=== PATIENT | female | born 1980 | race Hispanic/Latino ===

== ENCOUNTER → 2021-03-06 10:08 | Outpatient (CLI) | payer SELFPAY ==
[2021-03-06 18:54] LABS: Add Manual Diff / Slide Review NO; Basophils Absolute Auto 0 /uL (0-100); Basophils Percent Auto 0.7 % (0-2); Eosinophils Absolute Auto 0 /uL (0-450); Eosinophils Percent Auto 0.7 % (2-4); Hematocrit 39.9 % (36-46); Hemoglobin 13.4 g/dL (12.0-16.0); Lymphocytes Absolute Auto 1800 /uL (1100-4500); Lymphocytes Percent Auto 34.5 % (25-40); Mean Corpuscular HGB Conc 33.5 % (30-36); Mean Corpuscular Hemoglobin 30.8 PG (26-34); Mean Corpuscular Volume 92.1 fL (80-100); Monocytes Absolute Auto 300 /uL (0-900); Neutrophils Absolute Auto 3000 /uL (1500-7000); Neutrophils Percent Auto 59.1 % (50-75); Platelet Count 270 X10^3/uL (150-400); Red Blood Cell Count 4.34 X10^6/uL (4.0-5.2); Red Cell Distribution Width 13.4 % (11.6-14.8); White Blood Cell Count 5.2 X10^3/uL (4.5-11.0)
[2021-03-06 19:04] LABS: Alanine Aminotransferase 13 IU/L (<35); Albumin 4.4 g/dL (3.5-5.0); Albumin Globulin Ratio 1.2 (1.0-2.8); Alkaline Phosphatase 73 U/L (38-126); Aspartate Aminotransferase 25 IU/L (14-36); BUN Creatinine Ratio 18.2 (6-22); Bilirubin Total 0.5 mg/dL (0.2-1.3); Blood Urea Nitrogen 10 mg/dL (7-17); Calcium 9.7 mg/dL (8.4-10.2); Carbon Dioxide 28 mmol/L (22-32); Chloride 104 mmol/L (98-107); Estimated Glomerular Filt Rate > 60.0 mL/min (>60); Globulin 3.7 g/dL (1.7-4.1); Glucose 83 mg/dL (70-100); HEMOLYSIS < 15 (0-50); Lipase 139 U/L (23-300); Potassium 3.7 mmol/L (3.4-5.1); Sodium 141 mmol/L (137-145); Total Protein 8.1 g/dL (6.3-8.2)
[2021-03-07 16:13] LABS: Interpretation Negative (Negative)
== END ==
PROVIDERS: PCP Physician Assistant; Visit Provider Physician Assistant
DX: R30.0 Dysuria (principal); R10.9 Unspecified abdominal pain
CPT/HCPCS: 80053; 83013; 83690; 85025; 87086

== ENCOUNTER → 2021-03-09 08:00 | Outpatient (CLI) | payer SELFPAY | PROVIDERS: PCP Physician Assistant; Visit Provider Physician Assistant | DX: R10.31 Right lower quadrant pain (principal) | CPT/HCPCS: 87086 ==

== ENCOUNTER → 2021-03-24 13:34 | Outpatient (CLI) | payer SELFPAY ==
--- NOTE | 2021-03-24 13:43 | DI.US.S_ITS ---
PROCEDURE: US ABDOMEN COMPLETE INDICATIONS: PAIN TECHNIQUE: Real-time scanning was performed of the abdominal and retroperitoneal organs, with image documentation. COMPARISON: None. FINDINGS: Liver: Liver measures 10.4 cm and demonstrates steatosis. Gallbladder: Absent. Biliary ducts: Intrahepatic bile ducts are non-dilated. Extrahepatic bile duct caliber measures 6.4 mm. Normal is 6-7 mm or less in diameter, or 10 mm or less post-cholecystectomy. Pancreas: Visualized portions of the pancreas are sonographically normal. Spleen: Spleen is normal in size and homogeneous in echotexture. Kidneys: Kidneys are normal in size and echotexture. Right kidney measures 9.9 cm long; left kidney measures 10.1 cm long. No hydronephrosis or nephrolithiasis. No solid masses. Aorta: Visualized aorta is normal in caliber at less than 3 cm. Iliacs: Proximal common iliac arteries are normal in caliber at less than 2.5 cm. IVC: Intrahepatic inferior vena cava is patent. Miscellaneous: No free abdominal fluid. IMPRESSION: Unremarkable exam. Dictated by: Lexie Metcalf M.D. on 03/24/2021 at 16:51 Approved by: Lexie Metcalf M.D. on 03/24/2021 at 16:52
== END ==
PROVIDERS: PCP Physician Assistant
DX: R10.84 Generalized abdominal pain (principal); Z87.42 Personal history of other diseases of the female genital tract
CPT/HCPCS: 76700

== ENCOUNTER → 2021-04-12 11:42 | Outpatient (CLI) | payer SELFPAY ==
--- NOTE | 2021-04-12 11:48 | DI.US.S_ITS ---
PROCEDURE: US PELVIC COMPLETE INDICATIONS: PAIN TECHNIQUE: Real-time scanning was performed of the pelvic organs, with image documentation. Additional endovaginal scanning was necessary due to incomplete visualization of the adnexal and endometrial structures by transabdominal scanning. COMPARISON: [facility], US, US ABDOMEN COMPLETE, 03/24/2021, 14:59. FINDINGS: Uterus: Uterus is anteverted and normal in size at 8.4 x 3.4 x 4.8 cm. The myometrium is heterogeneous, with a 1.9 cm intramural fibroid seen on the right posteriorly. The endometrium measures 3-4 mm combined thickness. Ovaries: The right ovary is not seen. The left ovary measures 1.9 x 1 x 1.8 cm and demonstrates no focal abnormality. No adnexal masses are seen on either side. Other: No pathologic free abdominal or pelvic fluid. IMPRESSION: 1.9 cm uterine fibroid seen on the right posteriorly. We strive to produce accurate, complete, and clear reports of imaging services. To assist us in improving patient care, this report was composed using standard report templates and voice recognition software. Therefore, it may contain abnormal punctuation, insertions and/or omissions. Occasional wrong-word or sound-alike substitutions may occur. Though we review the report and make efforts to correct it, we do recommend that the report be read carefully in proper context to recognize any text inaccuracies. Dictated by: Ej Vivas M.D. on 04/12/2021 at 12:32 Approved by: Ej Vivas M.D. on 04/12/2021 at 12:33
== END ==
PROVIDERS: PCP Physician Assistant; Referring Provider Physician Assistant; Visit Provider Physician Assistant
DX: D25.1 Intramural leiomyoma of uterus (principal); R10.84 Generalized abdominal pain; Z87.42 Personal history of other diseases of the female genital tract
CPT/HCPCS: 76830; 76856

== ENCOUNTER → 2021-08-23 14:18 | Outpatient (CLI) | payer SELFPAY ==
[2021-08-23 14:48] LABS: COVID19 -Nasal RAPID Negative (Negative)
== END ==
PROVIDERS: PCP Physician Assistant; Visit Provider Obstetrics & Gynecology
DX: Z01.812 Encounter for preprocedural laboratory examination (principal); Z20.822 Contact with and (suspected) exposure to COVID-19
CPT/HCPCS: 87635

== ENCOUNTER → 2021-09-13 12:39 | Outpatient (CLI) | payer SELFPAY ==
[2021-09-13 16:54] LABS: COVID19 -Nasal RAPID Negative (Negative)
== END ==
PROVIDERS: PCP Physician Assistant; Visit Provider Obstetrics & Gynecology
DX: Z20.822 Contact with and (suspected) exposure to COVID-19 (principal); Z01.812 Encounter for preprocedural laboratory examination
CPT/HCPCS: 87635

== ENCOUNTER 2021-09-14 06:28 | Day surgery (SDC) | payer SELFPAY ==
[2021-09-11 10:52] VITALS: BMI 29.9
[2021-09-14] VITALS (12 sets, daily range): BP systolic 96–117; BP diastolic 47–81; PULSE 66–91; RESP 16–19; TEMP 35.9–36.8; O2SAT 98–100; BMI 29.9
--- NOTE | 2021-09-14 | PATH_ITS ---
[facility] Accession Number: [id number] . 01 Material submitted: . uterus - UTERUS, BILATERAL FALLOPIAN TUBE . 02 Diagnosis: Uterus, Bilateral Fallopian Tubes, Laparoscopic Supracervical Hysterctomy and Bilateral Salpingectomy (Disrupted and Fragmented Uterus Weight 45 grams): Proliferative endometrium; negative for glandular hyperplasia, cytologic atypia, or malignancy. Myometrium with patchy involvement by adenomyosis. Uterine serosa with no significant histomorphologic abnormality. Fallopian tubes x2, complete cross-sections; negative for atypia or malignancy. [facility] 09/18/2021 1425 Local . 02 Electronically signed: . Geneva Guerrier MD, Pathologist NPI- [id number] . 01 Gross description: . Received in formalin and labeled with the patient's name, designated uterus, bilateral fallopian tubes, is a markedly disrupted and fragmented uterus with bilateral undesignated fallopian tubes. The uterus fragments aggregate to 45 grams, 7.5 x 6.5 x 2.5 cm. The serosa is gary and disrupted with minimal scattered adhesions. There is scant endometrium identified, up to 0.1 cm thick. The myometrium is pink-gray and mildly trabeculated, up to 2.5 cm thick in the largest intact fragment. No discrete nodules or other lesions are identified. The first fallopian tube is fragmented, approximating to 5.5 cm in length by 0.6 cm in diameter with a gary ragged outer surface and attached open fimbriae. The second fallopian tube is 5 cm long by 0.6 cm in diameter with a purple-marroquin outer surface and attached open fimbriae. No additional lesions are identified. College Service Officer sections are submitted as follows: . A1-A2: College Service Officer endomyometrium. A3: College Service Officer first fallopian tube with entire fimbriae. A4: College Service Officer second fallopian tube with entire fimbriae. (LACY:[id number]) /MRV 09/15/2021 1500 Local . 02 Pathologist provided ICD-10: D25.1 . 02 CPT . 025391 Specimen Comment: A courtesy copy of this report has been sent to [phone] Performed at: 01 [facility] [address] [address], [place], [place] [id number] MD Maninder Rivas MD Phone: [phone] Performed at: 02 [facility] [address] [place], [place] [id number] MD Marilee Oliva MD Phone: [phone]
[2021-09-14] MEDS: LACTATED RINGERS 1,000 ML 42 ML IV (07:37)
[2021-09-14] MEDS: ACETAMINOPHEN 325 MG TABLET 975 MG PO (07:40)
--- NOTE | 2021-09-14 07:57 | PM.PREOP ---
Pre-operative Note COVID-19 COVID-19 status: Negative Result date/Date tested (Pos, Neg/Pending): 09/13/21 Criteria for continued procedure: Non-surgical alternatives not available or appropriate per current SOC Interval Note History & Physical reviewed/Exam performed by Physician: Yes Changes to H&P: No H&P completed within 30 days and has changed as indicated here:: 08/16/21
--- NOTE | 2021-09-14 08:00 | SUR.PREOP ---
Pre-admit done using hospital approved conference interpreter and assistance of staff.
[2021-09-14] MEDS: CEFAZOLIN 2 GM/20 ML SYRINGE IV (08:22)
--- NOTE | 2021-09-14 08:55 | SUR.OPER ---
Lithotomy on padded OR bed. Dunn Pad Positioner under torso. Head on pillow, arms padded and tucked at sides. Legs secured in padded yellow fins stirrups. Positioning help with Dr. Gutiérrez.
[2021-09-14] MEDS: BUPIVACAINE 0.5% (PF) 30 ML, EPINEPHrine 0.15 MG INJ (09:11)
--- NOTE | 2021-09-14 09:12 | SUR.OPER ---
Addendum entered by Neida Peters R.N. 09/14/21 09:19: Over the phone kaiawhina kura kaupapa maori called at 0740 in pre-op. Original Note: Over the phone kaiawhina kura kaupapa maori (Regis) called in pre-op per hospital policy to verify correct patient, correct surgery, any patient allergies, NPO status, and to verify consent for surgery and general anesthesia. Patient verified surgery as removal of uterus and bilateral tubes, but leaving cervix and both ovaries.
[2021-09-14] MEDS: ROPIVACAINE 0.2% PF 2 MG/ML 10ML AMP 20 ML INJ (09:30)
--- NOTE | 2021-09-14 10:11 | PM.GYNOP.1 ---
Operative Date/Time/Diagnoses Date of procedure: 09/14/21 Time of procedure: 10:11 Pre-op diagnosis: Menorrhagia Dysmenorrhea Post-op diagnosis: same Procedure & Clinicians Procedure: Procedures Operation Date: 09/14/21 07:45 Actual Procedure Side Surgeon p Laparoscopic Supracervical Hysterectomy with bilateral salpingectomy; lysis of adhesions Catie Muller MD Surgeon: Catie Muller Emergency Vehicle Operations Instructor: Kalyani Gutiérrez Anesthesia Type: General and Local Operative Notes Findings: 10 week size anteverted uterus Normal tubes Normal left ovary Right ovary with simple cyst Omental to abdominal wall adhesions Normal appendix Closure Type: primary Specimen(s): left tube, right tube and uterus Applied: catheter (Removed at end of the case) Estimated blood loss (mL): 20 Blood products transfused: none Procedure in detail: The patient was taken to the operating room where she was placed in the dorsal supine position. After adequate general endotracheal anesthesia was achieved, she was placed in the dorsal lithotomy position, and prepped and draped in the usual sterile fashion. A timeout was performed. A bivalve speculum was placed into the vagina and the anterior lip of the cervix grasped with a single-tooth tenaculum. An attempt was made to dilate the cervix to place the Zumi uterine manipulator but was unable. The single-tooth tenaculum was removed from the anterior lip of the cervix, and the bivalve speculum was removed from the vagina. A moistened sponge stick was placed into the vagina. Attention was then turned to the abdomen where 6 mL of half percent Marcaine with epinephrine were injected in the umbilical fold. A 5 mm incision was made. The Verees needle was placed into the peritoneal cavity, and its placement confirmed by aspiration and drop test. The Verees needle was removed. A 5 mm trocar was placed without difficulty. 2 other incisions were made 4 cm lateral to the umbilicus after 5 mL of half percent Marcaine with epinephrine were injected. These were 5 mm incisions. Two 5 mm trochars were placed under direct visualization. There were omental to anterior abdominal wall adhesions which were taken down with the power seal. Hemostasis was achieved. The right tube was grasped with an atraumatic grasper. Using the Powerseal the mesosalpinx was cauterized and cut all the way down to the cornua of the uterus. The cornua of the uterus was then grasped with an atraumatic grasper. The utero-ovarian ligaments were cauterized and cut. The round ligament and broad ligament was cauterized and cut with the Powerseal. Hemostasis was achieved. The bladder flap was created using the Powerseal with cautery and cut snf across. The uterine arteries on the right side were extensively cauterized with plasma kinetic. All of this was repeated on the left side. The remainder of the bladder flap was created using the plasma kinetic, and the bladder taken down off the lower uterine segment and cervix. Using the Endoloop, the cervix was amputated from the uterus 2 cm above the uterosacral ligaments. There was a small amount of bleeding noted from the posterior edge of the cervix, and this was cauterized for hemostasis. The endocervical canal was cauterized with the spatula. 6 mL of half percent Marcaine with epinephrine were injected above the pubic symphysis. A 12 mm trocar was placed. An Endobag was placed through the suprapubic trocar and the uterus and tubes were placed into the Endobag. The trocar was removed and the edges of the endobag were brought up through the skin. The Ezequiel was placed into the endobag. The uterus was hand morcellated in approximately 3 pieces. The Endobag was removed from the peritoneal cavity with the Ezequiel. The pelvis was copiously irrigated with warm normal saline. 20 cc of 0.2% ropivacaine were placed over the pelvic pedicles. No bleeding was noted. The instruments were removed from the abdomen. The CO2 was allowed to escape. The suprapubic incision was closed on the fascia with 0 Vicryl. Three simple interrupted sutures with 3-0 Vicryl were placed in the subcutaneous layer in the suprapubic incision. All of the incisions were closed with 4-0 Biosyn in a subcuticular fashion. The moistened sponge stick was removed from the vagina. Sponge, lap, and instrument counts were correct x-2. The patient tolerated the procedure well, was taken to PACU in stable condition. Complications: none Post-operative Condition: stable Disposition: PACU Plan for aftercare: To Acute Care after recovery
[2021-09-14] MEDS: KETOROLAC 30 MG/ML VIAL IV ×3 (10:56→22:21)
[2021-09-14] MEDS: LACTATED RINGERS 1,000 ML 100 ML IV (10:57)
--- NOTE | 2021-09-14 11:05 | PC.ADMIT ---
[email or web address] Admission Note: Pt arrived via bed from PACU, [place] speaking only, was able to orient to room and call light system, connected to monitoring equipment, able to make needs known, denies pain, only complaint is that she is cold. Bed low and locked, call light within reach, will continue to treat and monitor as ordered. The patient,Deb Nails,41 y/o, was given written information regarding hospital policies, unit procedures and contact persons. Patient's smoking status: Former smoker. Vital Signs - 8 hr 09/14/21 07:31 09/14/21 09:55 09/14/21 10:00 Temperature 97.8 F 98.2 F Pulse Rate 80 91 H 89 Respiratory Rate 16 16 16 Blood Pressure 116/81 104/47 L 96/66 Pulse Oximetry 98 100 100 09/14/21 10:05 09/14/21 10:10 09/14/21 10:18 Temperature 98.2 F Pulse Rate 82 73 66 Respiratory Rate 16 16 18 Blood Pressure 98/61 106/59 L 110/66 Pulse Oximetry 100 100 98 09/14/21 10:26 Temperature 97.0 F L Pulse Rate 80 Respiratory Rate 16 Blood Pressure 107/69 Pulse Oximetry 99
[2021-09-14] MEDS: IBUPROFEN 600 MG TABLET PO ×2 (12:32→20:02)
[2021-09-14] MEDS: ACETAMINOPHEN 325 MG TABLET 650 MG PO ×2 (12:32→20:02)
[2021-09-14] MEDS: SODIUM CHLORIDE 0.9% FLUSH 10 ML IV (22:22)
[2021-09-14] MEDS: DOCUSATE 100 MG CAPSULE 200 MG PO (22:22)
[2021-09-15 00:31] VITALS: BP 99/58; PULSE 72; RESP 19; TEMP 36.7; O2SAT 100
[2021-09-15 03:45] VITALS: BP 97/61; PULSE 72; RESP 18; TEMP 36.6; O2SAT 99
[2021-09-15] MEDS: ACETAMINOPHEN 325 MG TABLET 650 MG PO (04:39)
[2021-09-15] MEDS: KETOROLAC 30 MG/ML VIAL IV (04:40)
[2021-09-15] MEDS: SODIUM CHLORIDE 0.9% FLUSH 10 ML IV (04:40)
[2021-09-15 05:10] LABS: Add Manual Diff / Slide Review NO; Basophils Absolute Auto 0 /uL (0-100); Basophils Percent Auto 0.2 % (0-2); Eosinophils Absolute Auto 0 /uL (0-450); Eosinophils Percent Auto 0.1 % (2-4); Hemoglobin 12.3 g/dL (12.0-16.0); Lymphocytes Absolute Auto 1800 /uL (1100-4500); Lymphocytes Percent Auto 17.3 % (25-40); Mean Corpuscular HGB Conc 33.3 % (30-36); Mean Corpuscular Hemoglobin 30.8 PG (26-34); Mean Corpuscular Volume 92.5 fL (80-100); Monocytes Absolute Auto 600 /uL (0-900); Monocytes Percent Auto 5.7 % (3-14); Neutrophils Absolute Auto 8000 /uL (1500-7000); Neutrophils Percent Auto 76.7 % (50-75); Platelet Count 299 X10^3/uL (150-400); Red Blood Cell Count 4.01 X10^6/uL (4.0-5.2); Red Cell Distribution Width 14.1 % (11.6-14.8); White Blood Cell Count 10.5 X10^3/uL (4.5-11.0)
[2021-09-15 06:42] VITALS: BP 99/66; PULSE 74; RESP 18; TEMP 36.6; O2SAT 99
--- NOTE | 2021-09-15 09:20 | CM.DANOTE ---
Patient is a 41 yo female who was admitted on 09/14/21 for [facility] Salpingectomy. Pt has no insurance and her PCP is Radha Anton. EMR was reviewed. Per Surgeon, pt tolerated procedure well and medically stable to d/c home today. Per RN, pt is [place] Speaking and agreeable with d/c to home and hopeful to catch an early ferry home back to [facility] on a morning ferry and anxious to get discharged in time. No concerns at this time. Per admit counselors, pt is Self Pay but qualifies for [employer] Application and pt has been given the information and meet criteria for 100% financial assist. No bedside assessment at this time due to triage needs and pt discharge this morning and no needs identified. Plan: Patient to d/c home back to [facility] this morning via POV. No SW needs at this time, please refer if indicated. REANNA Cerda Discharge Planning/Care Management Pre-Anesthesia Assessment Start: 08/22/21 15:13 Freq: Status: Complete Protocol: Document 09/11/21 10:52 CAB (Rec: 08/22/21 15:18 [facility] [id number]) Pre-Anesthesia Assessment Patient Information Reviewed Via Chart Review Comment COVID screen @ 09/13/21 Primary Care Provider Radha Anton Seen Specialist in Last 12 Months Yes Specialist Seen Crawler Crane Operator Primary Language Chief Of Hospital Medicine Required Yes Height 149.86 cm Weight 67.132 kg Body Mass Index (BMI) 29.9 Anesthesia Review Requested No Hospitality Manager No Smoking Status Former smoker History of Falling (Recent or History of No ) Patient is completely paralyzed or No completely immobile Is patient on oxygen? No Hx Sleep Apnea No Currently Taking a Beta Chepe No Anti-Coagulant Therapy No Has a Cartographic Aide No Cardiac Testing No Hx Pacemaker/ICD No Pacemaker Rep Required? No Urinary Catheter Present No Hx Urinary Self Catheterization No Patient No Lactating No Marital Status Unknown Patient Discharge Plan Description Return Home Comment Lives on [facility]
--- NOTE | 2021-09-15 10:07 | PC.NURSE ---
AM Shift Pt is A/o x4, Trinidadian speaking only, denies pain, does express some concern with constipation. Colace given. Pt is dc home on [address] to [place]. at bedside. Reviewed all DC paperwork, in Trinidadian and allowed for questions. Follow up appt made with Renzo on October 11. No pain medication for DC, OTC ok. IV removed and Pt in WC to private vehicle.
== END 2021-09-15 10:11 | disposition home or self-care (01) ==
LOC: OR 06:33 → ICU 09-15 09:14
PROVIDERS: PCP Physician Assistant; Referring Provider Obstetrics & Gynecology; Visit Provider Obstetrics & Gynecology
PROC: 0UT94ZL Resection of Uterus, Supracervical, Percutaneous Endoscopic Approach (ICD-10-PCS; CPT 58542; principal; 2021-09-14 07:45)
DX: N92.0 Excessive and frequent menstruation with regular cycle (principal); K66.0 Peritoneal adhesions (postprocedural) (postinfection); N83.291 Other ovarian cyst, right side; D25.1 Intramural leiomyoma of uterus
CPT/HCPCS: 58542; 36415; 81025; 85025; J0171; J0330; J0690; J1100; J1885; J2250; J2405; J2704; J2795; J3010

== ENCOUNTER → 2021-09-25 14:05 | Outpatient (CLI) | payer SELFPAY ==
[2021-09-14 10:28] VITALS: BMI 29.9
== END ==
PROVIDERS: PCP Physician Assistant; Visit Provider Family Medicine
DX: R10.9 Unspecified abdominal pain (principal)
CPT/HCPCS: 87086

== ENCOUNTER → 2021-12-08 11:58 | Outpatient (CLI) | payer SELFPAY ==
[2021-09-14 10:28] VITALS: BMI 29.9
[2021-12-13 15:08] LABS: Candida species Negative (Negative); Gardnerella vaginalis Negative (Negative); Trichomoas vaginalis Negative (Negative)
== END ==
PROVIDERS: PCP Physician Assistant; Referring Provider Physician Assistant; Visit Provider Physician Assistant
DX: N89.8 Other specified noninflammatory disorders of vagina (principal)
CPT/HCPCS: 87480; 87510; 87660

== ENCOUNTER → 2022-03-21 11:54 | Outpatient (CLI) | payer SELFPAY ==
[2021-09-14 10:28] VITALS: BMI 29.9
[2022-03-24 06:10] LABS: Candida species Negative (Negative); Gardnerella vaginalis Positive (Negative); Trichomoas vaginalis Negative (Negative)
== END ==
PROVIDERS: PCP Physician Assistant; Referring Provider Physician Assistant; Visit Provider Physician Assistant
DX: N89.8 Other specified noninflammatory disorders of vagina (principal)
CPT/HCPCS: 87480; 87510; 87660

== ENCOUNTER → 2023-10-02 07:23 | Outpatient (CLI) | payer SELFPAY ==
[2021-09-14 10:28] VITALS: BMI 29.9
== END ==
PROVIDERS: PCP Physician Assistant; Visit Provider Physician Assistant Medical
DX: R31.9 Hematuria, unspecified (principal); N39.0 Urinary tract infection, site not specified
CPT/HCPCS: 87086

== ENCOUNTER → 2023-10-16 15:52 | Outpatient (CLI) | payer SELFPAY ==
[2021-09-14 10:28] VITALS: BMI 29.9
== END ==
PROVIDERS: PCP Physician Assistant Medical; Visit Provider Physician Assistant Medical
DX: R30.0 Dysuria (principal); R31.9 Hematuria, unspecified; R10.9 Unspecified abdominal pain
CPT/HCPCS: 87086

== ENCOUNTER → 2023-10-17 10:00 | Outpatient (CLI) | payer SELFPAY ==
[2021-09-14 10:28] VITALS: BMI 29.9
[2023-10-17 19:14] LABS: Add Manual Diff / Slide Review NO; Basophils Absolute Auto 0 /uL (0-100); Basophils Percent Auto 0.8 % (0-2); Eosinophils Absolute Auto 100 /uL (0-450); Eosinophils Percent Auto 1.2 % (2-4); Hematocrit 38.7 % (36-46); Hemoglobin 13.1 g/dL (12.0-16.0); Lymphocytes Absolute Auto 1700 /uL (1100-4500); Lymphocytes Percent Auto 37.3 % (25-40); Mean Corpuscular HGB Conc 33.8 % (30-36); Mean Corpuscular Hemoglobin 31.4 PG (26-34); Mean Corpuscular Volume 93.1 fL (80-100); Monocytes Absolute Auto 200 /uL (0-900); Monocytes Percent Auto 5.1 % (3-14); Neutrophils Absolute Auto 2500 /uL (1500-7000); Neutrophils Percent Auto 55.6 % (50-75); Platelet Count 237 X10^3/uL (150-400); Red Blood Cell Count 4.16 X10^6/uL (4.0-5.2); Red Cell Distribution Width 13.7 % (11.6-14.8); White Blood Cell Count 4.5 X10^3/uL (4.5-11.0)
[2023-10-17 21:37] LABS: Urine N gonorrhoeae NOT DETECTED
[2023-10-17 21:38] LABS: Urine Chlamydia NOT DETECTED
[2023-10-17 22:07] LABS: Alanine Aminotransferase 15 IU/L (<35); Albumin 4.6 g/dL (3.5-5.0); Albumin Globulin Ratio 1.3 (1.0-2.8); Alkaline Phosphatase 92 U/L (38-126); Amylase 59 U/L (30-110); Aspartate Aminotransferase 25 IU/L (14-36); Bilirubin Total 0.5 mg/dL (0.2-1.3); Blood Urea Nitrogen 11 mg/dL (7-17); Calcium 9.8 mg/dL (8.4-10.2); Carbon Dioxide 28 mmol/L (22-32); Chloride 104 mmol/L (98-107); Estimated Glomerular Filt Rate > 60 mL/min (>60); Globulin 3.5 g/dL (1.7-4.1); Glucose 91 mg/dL (70-100); HEMOLYSIS < 15 (0-50); Lipase 164 U/L (23-300); Potassium 4.4 mmol/L (3.4-5.1); Sodium 139 mmol/L (137-145); Total Protein 8.1 g/dL (6.3-8.2)
== END ==
PROVIDERS: PCP Physician Assistant Medical; Visit Provider Physician Assistant Medical
DX: M62.838 Other muscle spasm (principal); R07.81 Pleurodynia; R10.9 Unspecified abdominal pain; K76.0 Fatty (change of) liver, not elsewhere classified; R30.0 Dysuria; R31.9 Hematuria, unspecified
CPT/HCPCS: 80053; 82150; 83690; 85025; 87491; 87591

== ENCOUNTER → 2023-10-23 16:09 | Outpatient (CLI) | payer SELFPAY ==
[2021-09-14 10:28] VITALS: BMI 29.9
== END ==
PROVIDERS: PCP Physician Assistant Medical; Visit Provider Physician Assistant Medical
DX: R31.9 Hematuria, unspecified (principal)
CPT/HCPCS: 87086

== ENCOUNTER → 2023-10-30 10:54 | Outpatient (CLI) | payer SELFPAY ==
[2021-09-14 10:28] VITALS: BMI 29.9
--- NOTE | 2023-10-30 11:05 | DI.US.S_ITS ---
PROCEDURE: US RENAL COMPLETE INDICATIONS: PERSISTENT HEMATURIA TECHNIQUE: Real-time scanning was performed of the kidneys and bladder, with image documentation. COMPARISON: None. FINDINGS: Kidneys: Kidneys are normal in size. Right kidney measures 9.7 cm long; left kidney measures 11.1 cm long. Right renal cortical thickness is 1.4 cm; left renal cortical thickness is 1.6 cm. Renal cortical echotexture is normal. No hydronephrosis or nephrolithiasis. No suspicious solid mass lesions. Bladder: Pre-void bladder volume is 363 mL. Post-void residual is 31 mL. Pre-void images demonstrate no intraluminal masses or stones. On pre-void images, left ureteral jets are noted with color Doppler interrogation. (Of note, ureteral jets may not be detectable in up to 25% of cases due to insufficient differences in specific gravity between ureteral and bladder urine). Miscellaneous: No free pelvic fluid. IMPRESSION: Unremarkable ultrasound of the kidneys Approved by: Regis Colin M.D. on 10/30/2023 at 18:56
== END ==
PROVIDERS: PCP Physician Assistant Medical; Referring Provider Physician Assistant Medical; Visit Provider Physician Assistant Medical
DX: R31.9 Hematuria, unspecified (principal)
CPT/HCPCS: 76770

== ENCOUNTER → 2023-11-11 10:21 | Outpatient (CLI) | payer SELFPAY ==
[2021-09-14 10:28] VITALS: BMI 29.9
== END ==
PROVIDERS: PCP Physician Assistant Medical; Visit Provider Physician Assistant
DX: R07.0 Pain in throat (principal)
CPT/HCPCS: 87070

== ENCOUNTER → 2023-11-13 11:00 | Outpatient (CLI) | payer SELFPAY ==
[2021-09-14 10:28] VITALS: BMI 29.9
[2023-11-13 21:01] LABS: Add Manual Diff / Slide Review NO; Basophils Absolute Auto 100 /uL (0-100); Basophils Percent Auto 1.1 % (0-2); Eosinophils Absolute Auto 0 /uL (0-450); Eosinophils Percent Auto 0.5 % (2-4); Hematocrit 39.6 % (36-46); Hemoglobin 13.2 g/dL (12.0-16.0); Lymphocytes Absolute Auto 1900 /uL (1100-4500); Lymphocytes Percent Auto 35.5 % (25-40); Mean Corpuscular HGB Conc 33.3 % (30-36); Mean Corpuscular Hemoglobin 31.2 PG (26-34); Mean Corpuscular Volume 93.6 fL (80-100); Monocytes Absolute Auto 200 /uL (0-900); Monocytes Percent Auto 4.3 % (3-14); Neutrophils Absolute Auto 3100 /uL (1500-7000); Neutrophils Percent Auto 58.6 % (50-75); Platelet Count 281 X10^3/uL (150-400); Red Blood Cell Count 4.23 X10^6/uL (4.0-5.2); Red Cell Distribution Width 13.9 % (11.6-14.8); White Blood Cell Count 5.3 X10^3/uL (4.5-11.0)
[2023-11-13 21:15] LABS: Alanine Aminotransferase 13 IU/L (<35); Albumin 4.7 g/dL (3.5-5.0); Albumin Globulin Ratio 1.3 (1.0-2.8); Aspartate Aminotransferase 24 IU/L (14-36); Calcium 9.7 mg/dL (8.4-10.2); Carbon Dioxide 26 mmol/L (22-32); Chloride 108 mmol/L (98-107); Globulin 3.7 g/dL (1.7-4.1); Glucose 91 mg/dL (70-100); HEMOLYSIS < 15 (0-50); Sodium 141 mmol/L (137-145); Total Protein 8.4 g/dL (6.3-8.2)
[2023-11-13 21:30] LABS: Alkaline Phosphatase 101 U/L (38-126); BUN Creatinine Ratio 16.1 (6-22); Bilirubin Total 0.5 mg/dL (0.2-1.3); Blood Urea Nitrogen 10 mg/dL (7-17); Estimated Glomerular Filt Rate > 60 mL/min (>60)
[2023-11-13 21:42] LABS: TSH w/ Reflex to FT4 1.77 uIU/mL (0.47-4.68)
== END ==
PROVIDERS: PCP Physician Assistant Medical; Visit Provider Physician Assistant
DX: R31.9 Hematuria, unspecified (principal); R09.A2 Foreign body sensation, throat; R07.0 Pain in throat; K76.0 Fatty (change of) liver, not elsewhere classified
CPT/HCPCS: 80053; 84443; 85025

== ENCOUNTER → 2024-03-11 15:20 | Outpatient (CLI) | payer BC, SELFPAY ==
[2021-09-14 10:28] VITALS: BMI 29.9
== END ==
PROVIDERS: PCP Physician Assistant Medical; Visit Provider Nurse Practitioner Adult Health
DX: Z12.4 Encounter for screening for malignant neoplasm of cervix (principal); Z01.419 Encounter for gynecological examination (general) (routine) without abnormal findings; Z78.0 Asymptomatic menopausal state
CPT/HCPCS: 87798; 87801

== ENCOUNTER 2024-04-08 18:11 | Emergency (ER) | payer SELFPAY ==
[2021-09-14 10:28] VITALS: BMI 29.9
[2024-04-08 18:17] VITALS: BP 137/80; PULSE 87; RESP 18; TEMP 36.9; O2SAT 100; BMI 28.0
--- NOTE | 2024-04-08 18:28 | DI.RAD.S_ITS ---
PROCEDURE: XR CHEST 1V INDICATIONS: dyspnea, L arm pain TECHNIQUE: One view of the chest was acquired. COMPARISON: None. FINDINGS: Surgical changes and devices: None. Lungs and pleura: Lungs are clear. No pleural effusions or pneumothorax. Mediastinum: Mediastinal contours appear normal. Heart size is normal. Bones and chest wall: No suspicious bony lesions. Overlying soft tissues appear unremarkable. IMPRESSION: No acute pulmonary process. Dictated by: Lexie Metcalf M.D. on 04/08/2024 at 19:18 Approved by: Lexie Metcalf M.D. on 04/08/2024 at 19:18
--- NOTE | 2024-04-08 18:38 | ED_ITS ---
HPI - Headache General Chief Complaint: Headache Stated Complaint: SOB, left arm px, headache x2 days Time Seen by Provider: 04/08/24 18:25 Mode of arrival: Ambulatory History of Present Illness HPI Narrative: 44-year-old female with no reported past medical history presents for evaluation of headache and left arm pain. History obtained with help of physician general internal medicine services patient was [place]ib[place]ian-speaking only. She reports 1 day of generalized headache and aching pain in her left elbow that is atraumatic. She states that she checked her blood pressure at home and found that it was elevated. She initially went to the walk-in clinic, but due to her complaints she was referred to the ER for evaluation. She denies history of other medical problems, denies history of heart disease. Denies family history of heart disease Related Data Previous Rx's Medication Instructions Recorded fluconazole 100 mg tablet 100 mg PO .q 3 d #3 tabs 10/16/23 (Diflucan) baclofen 10 mg tablet 10 mg PO QID PRN muscle spasm #90 10/23/23 tabs fluticasone propionate 50 1 spray intranasal Q12H #16 grams 11/20/23 mcg/actuation nasal spray,suspension (Flonase Allergy Relief) estradiol 0.01% (0.1 mg/gram) 1 appful vaginal 3XW #42.5 grams 03/11/24 vaginal cream (Estrace) Allergies Allergy/AdvReac Type Severity Reaction Status Date / Time No Known Drug Allergies Allergy Verified 04/08/24 18:23 Patient History Medical History Menopausal and postmenopausal disorder Cervical cancer screening Screening for HPV (human papillomavirus) Well woman exam with routine gynecological exam Vaginal discharge Postop check Urinary tract infection Fibroid uterus Menorrhagia Acid reflux Uterine fibroid Surgical History History of 2 sections Hx of cholecystectomy Social History household members: significant other Smoking Status: Never smoker alcohol intake: current Smoking Status: Never smoker alcohol intake frequency: holidays/special occasions only Exam Initial Vital Signs Initial Vital Signs: Vital Signs Temperature 98.4 F 04/08/24 18:17 Pulse Rate 87 04/08/24 18:17 Respiratory Rate 18 04/08/24 18:17 Blood Pressure 137/80 04/08/24 18:17 Pulse Oximetry 100 04/08/24 18:17 Oxygen Delivery Method Room Air 04/08/24 18:17 Const: Awake, alert, no acute distress, nontoxic appearing Cardiac: regular rate, regular rhythm RESP: unlabored, clear bilaterally, no wheezing Skin: Warm, Dry, intact, no rashes Neuro: AO x3, CN II-XII grossly intact, moves all extremities Course Orders Ordered: Discontinued Medications Ketorolac Tromethamine (Ketorolac 30 Mg/Ml Vial) 15 mg IV NOW ONE Stop: 04/08/24 18:38 Last Admin: 04/08/24 18:56 Dose: 15 mg Documented By: HUANG Vital Signs Vital signs: Vital Signs - 8 hr 04/08/24 18:17 04/08/24 20:30 Temperature 98.4 F Pulse Rate 87 82 Respiratory Rate 18 14 Blood Pressure 137/80 131/77 Pulse Oximetry 100 98 Oxygen Delivery Method Room Air Room Air MDM - Headache Lab Data 04/08/24 18:43 04/08/24 18:43 Labs: Lab Results 04/08/24 Range/Units 18:43 WBC 6.3 (4.5-11.0) X10^3/uL RBC 4.20 (4.0-5.2) X10^6/uL Hgb 13.1 (12.0-16.0) g/dL Hct 39.1 (36-46) % MCV 93.0 (80-100) fL MCH 31.2 (26-34) PG MCHC 33.6 (30-36) % RDW 13.9 (11.6-14.8) % Plt Count 271 (150-400) X10^3/uL Neut % (Auto) 63.9 (50-75) % Lymph % (Auto) 30.2 (25-40) % Hyde % (Auto) 4.4 (3-14) % Eos % (Auto) 0.6 L (2-4) % Baso % (Auto) 0.9 (0-2) % Neut # (Auto) 4000 (0557-2323) /uL Lymph # (Auto) 1900 (0908-9359) /uL Hyde # (Auto) 300 (0-900) /uL Eos # (Auto) 0 (0-450) /uL Baso # (Auto) 100 (0-100) /uL Sodium 139 (137-145) mmol/L Potassium 3.6 (3.4-5.1) mmol/L Chloride 106 (98-107) mmol/L Carbon Dioxide 25 (22-32) mmol/L BUN 13 (7-17) mg/dL Creatinine 0.74 (0.52-1.04) mg/dL Estimated GFR > 60 (>60) mL/min BUN/Creatinine Ratio 17.6 (6-22) Glucose 102 H (70-100) mg/dL Calcium 9.5 (8.4-10.2) mg/dL Total Bilirubin 0.4 (0.2-1.3) mg/dL AST 27 (14-36) IU/L ALT 16 (<35) IU/L Alkaline Phosphatase 90 (38-126) U/L Total Creatine Kinase 72 (30-135) U/L Troponin I < 0.012 (0.01-0.034) ng/mL Total Protein 8.4 H (6.3-8.2) g/dL Albumin 4.7 (3.5-5.0) g/dL Globulin 3.7 (1.7-4.1) g/dL Albumin/Globulin Ratio 1.3 (1.0-2.8) Point of Care Testing Test Results Negative Urine Dip Bedside Urine Glucose Negative Bedside Urine Bilirubin - Negative Bedside Urine Ketone - Negative Urine Specific [place] 1.005 Bedside Urine Occult Blood - Negative Bedside Urine pH 6.0 Bedside Urine Protein - Negative Bedside Urine Urobilinogen +/- 1mg Bedside Urine Nitrite - Negative Bedside Urine Leukocytes - Negative Esterase Imaging Data Chest x-ray: Radiologist's Impression: PROCEDURE: XR CHEST 1V INDICATIONS: dyspnea, L arm pain TECHNIQUE: One view of the chest was acquired. COMPARISON: None. FINDINGS: Surgical changes and devices: None. Lungs and pleura: Lungs are clear. No pleural effusions or pneumothorax. Mediastinum: Mediastinal contours appear normal. Heart size is normal. Bones and chest wall: No suspicious bony lesions. Overlying soft tissues appear unremarkable. IMPRESSION: No acute pulmonary process. Dictated by: Lexie Metcalf M.D. on 04/08/2024 at 19:18 Approved by: Lexie Metcalf M.D. on 04/08/2024 at 19:18 MDM Narrative Medical decision making narrative: Well appearing patient with above complaint. states HTN at home but relatively normal BP in ED. No chest pain, just L elbow pain. No red flag signs of headache. Patient given toradol for headache wtih improvement in symptoms. Labs and chest x-ray unremarkable. Patient relieved to hear normal blood results. She was advised to take Tylenol and ibuprofen as needed for headache and advised to drink plenty of fluids. PCP follow up advised. Discharge Plan Departure Patient Disposition: Home Clinical Impression: Headache, Elevated blood pressure reading Instructions: DI for Headache Activity Restrictions/Additional Instructions: Arin Tylenol y ibuprofena por dolor. Arin paula agqu. Sigue con davila doctor primario. Prescriptions: No Action fluconazole [Diflucan] 100 mg tablet 100 mg PO .q 3 d Qty: 3 0RF baclofen 10 mg tablet 10 mg PO QID PRN (Reason: muscle spasm) Qty: 90 2RF fluticasone propionate [Flonase Allergy Relief] 50 mcg/actuation spray,suspension 1 spray intranasal Q12H Qty: 16 2RF Rx Instructions: administer into each nostril estradiol [Estrace] 0.01 % (0.1 mg/gram) cream 1 appful vaginal 3XW Qty: 42.5 2RF Rx Instructions: continue using q 2-3 days pv and at external introitus Referrals: Marilee Lee PA-C [Primary Care Provider] - Stand Alone Forms: Patient Portal/API/Survey
[2024-04-08 18:51] LABS: Add Manual Diff / Slide Review NO; Basophils Absolute Auto 100 /uL (0-100); Basophils Percent Auto 0.9 % (0-2); Eosinophils Absolute Auto 0 /uL (0-450); Eosinophils Percent Auto 0.6 % (2-4); Hematocrit 39.1 % (36-46); Hemoglobin 13.1 g/dL (12.0-16.0); Lymphocytes Absolute Auto 1900 /uL (1100-4500); Lymphocytes Percent Auto 30.2 % (25-40); Mean Corpuscular HGB Conc 33.6 % (30-36); Mean Corpuscular Hemoglobin 31.2 PG (26-34); Monocytes Absolute Auto 300 /uL (0-900); Monocytes Percent Auto 4.4 % (3-14); Neutrophils Absolute Auto 4000 /uL (1500-7000); Neutrophils Percent Auto 63.9 % (50-75); Platelet Count 271 X10^3/uL (150-400); Red Cell Distribution Width 13.9 % (11.6-14.8); White Blood Cell Count 6.3 X10^3/uL (4.5-11.0)
[2024-04-08] MEDS: KETOROLAC 30 MG/ML VIAL 15 MG IV (18:56)
[2024-04-08 19:02] LABS: Alanine Aminotransferase 16 IU/L (<35); Albumin 4.7 g/dL (3.5-5.0); Albumin Globulin Ratio 1.3 (1.0-2.8); Alkaline Phosphatase 90 U/L (38-126); Aspartate Aminotransferase 27 IU/L (14-36); BUN Creatinine Ratio 17.6 (6-22); Bilirubin Total 0.4 mg/dL (0.2-1.3); Blood Urea Nitrogen 13 mg/dL (7-17); Calcium 9.5 mg/dL (8.4-10.2); Carbon Dioxide 25 mmol/L (22-32); Chloride 106 mmol/L (98-107); Creatine Kinase 72 U/L (30-135); Estimated Glomerular Filt Rate > 60 mL/min (>60); Globulin 3.7 g/dL (1.7-4.1); Glucose 102 mg/dL (70-100); HEMOLYSIS < 15 (0-50); Potassium 3.6 mmol/L (3.4-5.1); Sodium 139 mmol/L (137-145); Total Protein 8.4 g/dL (6.3-8.2)
[2024-04-08 19:14] LABS: Troponin I < 0.012 ng/mL (0.01-0.034)
[2024-04-08 20:30] VITALS: BP 131/77; PULSE 82; RESP 14; O2SAT 98
== END 2024-04-08 20:52 | disposition home or self-care (01) ==
PROVIDERS: Emergency Provider Emergency Medicine; PCP Physician Assistant Medical
DX: R51.9 Headache, unspecified (principal); R03.0 Elevated blood-pressure reading, without diagnosis of hypertension; M79.602 Pain in left arm; R06.00 Dyspnea, unspecified
CPT/HCPCS: 71045; 80053; 81003; 81025; 82550; 84484; 85025; 96374; 99283; 99284; J1885

== ENCOUNTER → 2024-07-06 15:30 | Outpatient (CLI) | payer SELFPAY ==
[2021-09-14 10:28] VITALS: BMI 29.9
--- NOTE | 2024-07-06 15:33 | DI.RAD.S_ITS ---
PROCEDURE: XR CERVICAL SPINE 2V OR 3V INDICATIONS: Neck pain TECHNIQUE: Three views of the cervical spine were acquired. COMPARISON: None. FINDINGS: Bones: No acute fractures or dislocations to the T1 level. The lateral masses of C1 appear intact on the odontoid view. No suspicious bony lesions. Multilevel disc space narrowing and degenerative endplate changes, most notably at C5-6. Multilevel uncovertebral joint and facet hypertrophy. Soft tissues: No prevertebral soft tissue swelling. IMPRESSION: 1. No acute displaced fracture or traumatic subluxation. 2. Mild multilevel cervical spondylosis. Approved by: Sonido Merritt M.D. on 07/07/2024 at 10:43
== END ==
LOC: RAD 15:32
PROVIDERS: PCP Physician Assistant Medical; Referring Provider Nurse Practitioner Family; Visit Provider Nurse Practitioner Family
DX: M54.2 Cervicalgia (principal); M47.812 Spondylosis without myelopathy or radiculopathy, cervical region
CPT/HCPCS: 72040

== ENCOUNTER → 2024-07-30 08:33 | Outpatient (CLI) | payer SELFPAY ==
[2021-09-14 10:28] VITALS: BMI 29.9
[2024-07-30 19:20] LABS: Add Manual Diff / Slide Review NO; Basophils Absolute Auto 0 /uL (0-100); Basophils Percent Auto 0.9 % (0-2); Eosinophils Absolute Auto 0 /uL (0-450); Eosinophils Percent Auto 1.1 % (2-4); Hematocrit 40.3 % (36-46); Hemoglobin 13.3 g/dL (12.0-16.0); Lymphocytes Absolute Auto 1900 /uL (1100-4500); Lymphocytes Percent Auto 42.3 % (25-40); Mean Corpuscular Hemoglobin 31.1 PG (26-34); Mean Corpuscular Volume 94.1 fL (80-100); Monocytes Absolute Auto 200 /uL (0-900); Monocytes Percent Auto 5.1 % (3-14); Neutrophils Absolute Auto 2200 /uL (1500-7000); Neutrophils Percent Auto 50.6 % (50-75); Platelet Count 251 X10^3/uL (150-400); Red Blood Cell Count 4.29 X10^6/uL (4.0-5.2); Red Cell Distribution Width 13.6 % (11.6-14.8); White Blood Cell Count 4.4 X10^3/uL (4.5-11.0)
[2024-07-30 19:42] LABS: Alanine Aminotransferase 16 IU/L (<35); Albumin 4.7 g/dL (3.5-5.0); Albumin Globulin Ratio 1.3 (1.0-2.8); Alkaline Phosphatase 81 U/L (38-126); Amylase 66 U/L (30-110); Aspartate Aminotransferase 29 IU/L (14-36); BUN Creatinine Ratio 20.7 (6-22); Bilirubin Total 0.7 mg/dL (0.2-1.3); Blood Urea Nitrogen 12 mg/dL (7-17); Calcium 9.8 mg/dL (8.4-10.2); Carbon Dioxide 23 mmol/L (22-32); Chloride 106 mmol/L (98-107); Estimated Glomerular Filt Rate > 60 mL/min (>60); Globulin 3.6 g/dL (1.7-4.1); Glucose 94 mg/dL (70-100); HEMOLYSIS 45 (0-50); Lipase 190 U/L (23-300); Potassium 4.2 mmol/L (3.4-5.1); Sodium 140 mmol/L (137-145); Total Protein 8.3 g/dL (6.3-8.2)
[2024-08-03 12:08] LABS: Fecal Immunochemical Test Negative (Negative)
[2024-08-03 16:36] LABS: Interpretation Negative (Negative)
== END ==
PROVIDERS: PCP Family Medicine; Visit Provider Physician Assistant Medical
DX: R10.9 Unspecified abdominal pain (principal); R11.0 Nausea; R31.9 Hematuria, unspecified; R07.81 Pleurodynia; Z12.11 Encounter for screening for malignant neoplasm of colon
CPT/HCPCS: 80053; 82150; 82274; 83013; 83690; 85025; 87077; 87086; 87147

== ENCOUNTER → 2025-04-19 09:53 | Outpatient (CLI) | payer SELFPAY ==
[2021-09-14 10:28] VITALS: BMI 29.9
[2025-04-20 17:13] LABS: HIV 1 & 2 Ab/Ag 4th Gen Combo NEGATIVE (NEGATIVE)
== END ==
PROVIDERS: PCP Family Medicine; Visit Provider Family Medicine
DX: R21 Rash and other nonspecific skin eruption (principal)
CPT/HCPCS: 86592; 86780; 87389